=== PATIENT | male | born 1995 | race Caucasian/White ===

== ENCOUNTER → 2023-07-22 06:38 | Day surgery (SDC) | payer BC, SELFPAY | LOC: GI 06:38 | PROVIDERS: ATTENDING PHYSICIAN Internal Medicine Gastroenterology | DX: K63.5 Polyp of colon (principal); K57.30 Diverticulosis of large intestine without perforation or abscess without bleeding; K64.0 First degree hemorrhoids; Z87.19 Personal history of other diseases of the digestive system | CPT/HCPCS: 45380; 88305 ==

== ENCOUNTER 2023-11-17 04:16 | Emergency (ER) | payer BC, SELFPAY ==
[2023-11-17 04:17] VITALS: BMI 28.8
[2023-11-17 04:32] VITALS: BP 130/90
--- NOTE | 2023-11-17 07:28 | ED.GENMED ---
History of Present Illness
General
Chief Complaint: Eye Problems
Source: patient
Exam Limitations: none
Time Seen by Provider: 11/17/23 06:37
Nursing documentation reviewed up to this point in time: agreed with
History of Present Illness
History of Present Illness:
Patient is a 28-year-old male who complains of pain in his left eye and a foreign body sensation. This started yesterday while he was exercising at home. Patient has flushed his eyes multiple times. Patient does not wear corrective lenses or
contacts. Patient denies any photophobia or blurring of his vision.
Past History
Past History
ED Past Medical History: Other (Diverticulitis)
ED Past Surgical History: Other (Oral surgery)
Social History
Tobacco: Non-smoker
Alcohol: Occasional
Personal: Single
Living: with family
Employment: Employed (Patient reports for 2 days due to)
Review of Systems
Review of Systems
All Other Systems: Not applicable
Phy Exam
Physical Exam
Physical Exam:
Physical Exam
General: moderate distress, alert and appropriate, well nourished, well hydrated
HENT: Normocephalic, supple with no lymphadenopathy
Eyes: Clear sclera, conjuctiva with injection of the left eye. Lid everted and no foreign body. No foreign body of the cornea but positive fluorescein uptake around 9:00 just medial to the pupil. Pupils are equal and
reactive to light and accommodation.
Neuro: Alert and oriented x 3, CN II - XII intact, no motor focality, no cerebellar dysfunction
Psychiatric: well kept. interactive and cooperative
Scores
Heart Failure Risk
Heart Failure Risk Score: Not Applicable
Heart Score for Chest Pain Patients
STEMI patient?: Not applicable
Withdrawal Assessment of Alcohol
Withdrawal Assessment Completed?: Not applicable
Course
Orders/Labs/Results
Orders:
Orders
11/17/23 07:23
Cyclopentolate 1% [Cyclogyl 1% Eye Drops] See Dose Instructions OPHTH ONCE ONE
11/17/23 07:43
Erythromycin (Ilotycin) [Erythromycin 0.5% Ophthalmic Ointment] See Dose Instructions OPHTH NOW STA
Vital Signs
Initial and Last Documented VS:
Initial Vital Signs
Temp Pulse Resp BP Pulse Ox
97.8 F 60 18 130/90 98
11/17/23 04:32 11/17/23 04:32 11/17/23 04:32 11/17/23 04:32 11/17/23 04:32
Last Documented Vital Signs
Temp Pulse Resp BP Pulse Ox
97.8 F 60 18 130/90 98
11/17/23 04:32 11/17/23 04:32 11/17/23 04:32 11/17/23 04:32 11/17/23 04:32
*Pulse Oximetry
Patient hypoxic: no
*EKG
Interpreted by ED Provider?: NA
*Experience Designer Interpretation
Rate: Experience Designer- N/A
*Critical Care Note
Total Time (30-74mins, 75-104mins- exclusive of procedures): Not Applicable
ED Attending Note
-
Portions of this chart may have been created with voice recognition software.� Occasional wrong word or��sound alike� substitutions may have occurred due to the inherent limitations of voice recognition software.
Discharge Plan
Departure
Patient Disposition: Home (Routine Discharge)
Date of Disposition: 11/17/23
Time of Disposition: 08:18
Patient with high blood pressure during this ER visit?: No
Condition: Fair
Covid-19: Not Applicable
Discharge Problem:
Corneal abrasion, left
Instructions: Corneal Abrasion (DC)
Prescriptions:
New
ofloxacin 0.3 % drops
2 drp ophthalmic (eye) QID Qty: 10 0RF
oxycodone 5 mg tablet
5 mg PO Q4H PRN (Reason: Pain) Qty: 7 0RF
Referrals:
Andrew Perez DO [Family Provider] - As needed
Mary Carmen Jaramillo MD [Active] - Follow up in 2-3 days
Activity Restrictions/Additional Instructions:
Take eye patch off in 6 hours. Use cool compresses to the area for 20 to 30 minutes 5-6 times a day. Use the eyedrops as prescribed. Acetaminophen 1000 mg or ibuprofen 400 mg every 6 hours for pain.
Interventions
Interventions:
*Risk Screen - Suicide Last Done: 11/17/23 04:32
*Neglect/Abuse Screening Last Done: 11/17/23 04:32
ED- Fall Risk Assessment Last Done: 11/17/23 05:58
*ED COVID-19 Vaccine History Last Done: 11/17/23 05:58
Discharge Date and Time
Print Language: GREEK
[2023-11-17] MEDS: CYCLOGYL 1% EYE DROPS 2 DROP OPHTH (07:57)
[2023-11-17] MEDS: ERYTHROMYCIN 0.5% OPHTHALMIC OINTMENT 1 APPLIC OPHTH (07:57)
[2023-11-17 09:01] VITALS: BP 127/77
== END 2023-11-17 08:30 | disposition home or self-care (01) ==
LOC: EMR 04:16
PROVIDERS: EMERGENCY PHYSICIAN Emergency Medicine; FAMILY PHYSICIAN Family Medicine
DX: S05.02XA Injury of conjunctiva and corneal abrasion without foreign body, left eye, initial encounter (principal); X58.XXXA Exposure to other specified factors, initial encounter
CPT/HCPCS: 99282